=== PATIENT | female | born 2000 | race Two or more races ===

== ENCOUNTER 2025-05-12 15:12 | Emergency (ER) | payer MEDICAID ==
[~2025-05-12] VITALS: Ht 167.6 cm; Wt 49.9 kg
[2025-05-12 15:18] VITALS: TEMP 98.4
[2025-05-12] MEDS: IV NS 0.9% 1,000 ML BAG IV ONE (15:40)
[2025-05-12 15:55] LABS: PLATELET COUNT (AUTO) 167 K/uL (150-450); RED BLOOD CELL COUNT(AUTO) 4.37 MIL/uL (4.0-5.2); RED CELL DISTRIBUTION WIDTH 12.9 % (11.5-15.0); WHITE BLOOD COUNT (AUTO) 4.5 K/uL (4.3-11.0)
[2025-05-12 16:04] LABS: CALCIUM, SERUM 8.6 mg/dL (8.5-10.1); CREATININE 0.6 mg/dL (0.6-1.3); SODIUM SERUM 145 mmol/L (136-145); UREA NITROGEN, BLOOD 6 mg/dL (7-18)
[2025-05-12 16:10] LABS: AMPHETAMINE, URINE NEGATIVE (NEGATIVE); BARBITURATE, URINE NEGATIVE (NEGATIVE); BENZODIAZEPINE, URINE NEGATIVE (NEGATIVE); CANNABINOID, URINE NEGATIVE (NEGATIVE); COCCAINE, URINE NEGATIVE (NEGATIVE); OPIATE, URINE NEGATIVE (NEGATIVE)
[2025-05-12 16:10] LABS: ASPARTATE AMINOTRANSFERASE 282 U/L (15-37); TOTAL PROTEIN, SERUM 8.2 g/dL (6.4-8.2)
[2025-05-12 16:15] LABS: PREGNANCY TEST SERUM QUAN 1 mIU/mL (0-6)
[2025-05-12 16:17] LABS: ALCOHOL, BLOOD 431 mg/dL (0-10)
[2025-05-12] MEDS ORDERED: THIAMINE HCL 100 MG TABLET ONE (17:00)
[2025-05-12] MEDS: THIAMINE HCL 100 MG TABLET PO ONE (17:05)
[2025-05-12] MEDS: IV LR 1000 ML 1,000 ML BAG IV ONE (17:10)
[2025-05-12 18:19] VITALS: BP 127/79; O2SAT 99
== END 2025-05-12 18:52 | disposition left against medical advice (07) ==
LOC: ER 15:21
DX: F10.129 Alcohol abuse with intoxication, unspecified (principal); E11.9 Type 2 diabetes mellitus without complications; F15.90 Other stimulant use, unspecified, uncomplicated; F17.200 Nicotine dependence, unspecified, uncomplicated; I10 Essential (primary) hypertension; Z79.84 Long term (current) use of oral hypoglycemic drugs; Z79.899 Other long term (current) drug therapy; Y90.8 Blood alcohol level of 240 mg/100 ml or more
CPT/HCPCS: 99285; 96360; 96361; 93005; 71045; 85025; 80048; 80076; 36415; 84484; 84702; 80320; 80307; J7120; J7030; G0480